=== PATIENT | male | born 1970 | race Caucasian/White ===

== ENCOUNTER 2018-10-04 03:19 | Emergency (ER) | payer OTHER, MEDICAID ==
[~2018-10-04] VITALS: Ht 177.8 cm; Wt 84.0 kg
[2018-10-04 03:23] VITALS: BP 131/82
[2018-10-04 04:03] LABS: BASOPHILS % (AUTO) 0.4 % (0-1); EOSINOPHILS # (AUTO) 0.2 X10'3 (0-0.9); EOSINOPHILS % (AUTO) 3.3 % (0-6); HEMATOCRIT 42.2 % (42.0-52.0); HEMOGLOBIN 14.1 g/dl (14.0-17.9); LYMPHOCYTES # (AUTO) 1.5 X10'3 (1.1-4.8); LYMPHOCYTES % (AUTO) 21.8 % (21-51); MEAN CORPUSCULAR HEMOGLOBIN 30.9 PG (27.0-31.0); MEAN CORPUSCULAR HGB CONC 33.3 % (33.0-36.5); MEAN CORPUSCULAR VOLUME 92.8 FL (78-98); MEAN PLATELET VOLUME 7.9 FL (7.4-10.4); MONOCYTES # (AUTO) 0.6 X10'3 (0-0.9); MONOCYTES % (AUTO) 8.4 % (2-12); NEUTROPHILS # (AUTO) 4.7 X10'3 (1.8-7.7); NEUTROPHILS % (AUTO) 66.1 % (42-75); PLATELET COUNT 289 X10'3 (140-440); RED BLOOD COUNT 4.55 X10'6 (4.70-6.10); WHITE BLOOD COUNT 7.1 X10'3 (4.5-11.0)
[2018-10-04 04:17] LABS: ALANINE AMINOTRANSFERASE 38 U/L (12-78); ALBUMIN/GLOBULIN RATIO 1.2 (1.1-1.5); ALKALINE PHOSPHATASE 89 IU/L (46-116); ANION GAP 9 (8-16); ASPARTATE AMINO TRANSFERASE 28 U/L (10-37); BILIRUBIN,TOTAL 0.4 MG/DL (0.1-1.0); BLOOD UREA NITROGEN 16 MG/DL (7-18); BUN/CREATININE RATIO 15.4 (5.4-32.0); CALCIUM 9.1 MG/DL (8.5-10.1); CHLORIDE 101 MMOL/L (99-107); CREATININE 1.04 MG/DL (0.60-1.10); GLUCOSE 96 MG/DL (70-104); POTASSIUM 4.4 MMOL/L (3.5-5.1); SODIUM 139 MMOL/L (135-145); TOTAL CARBON DIOXIDE 28.6 MMOL/L (24-32); TOTAL PROTEIN 7.4 G/DL (6.4-8.2); eGFR 77 ML/MIN
[2018-10-04 04:19] LABS: PARTIAL THROMBOPLASTIN TIME 28 SECONDS (22-32); PROTHROMBIN TIME 10.3 SECONDS (9.0-12.0)
== END 2018-10-04 05:49 | disposition home or self-care (01) ==
LOC: ER 03:20
DX: R07.89 Other chest pain (principal); R42 Dizziness and giddiness; R10.13 Epigastric pain; Z87.891 Personal history of nicotine dependence; Z88.1 Allergy status to other antibiotic agents
CPT/HCPCS: 36415; 71045; 80053; 84484; 85025; 85610; 85730; 93005; 99284

== ENCOUNTER 2021-07-30 04:38 | Emergency (ER) | payer MEDICAID, OTHER ==
[~2021-07-30] VITALS: Ht 175.3 cm; Wt 49.5 kg
[2021-07-30 06:01] LABS: CLARITY,URINE CLEAR (Clear); COLOR,URINE YELLOW (Yellow); GLUCOSE, URINE NEGATIVE (Neg); KETONES,URINE NEGATIVE (Neg); LEUKOCYTE ESTERASE ,URINE NEGATIVE (Neg); NITRITES, URINE NEGATIVE (Neg); OCCULT BLOOD,URINE TRACE-INTACT (Neg); PROTEIN,URINE NEGATIVE (Neg); UA COLLECTION TYPE CLN CATCH MIDSTREAM; UROBILINOGEN,URINE 0.2 E.U/dL (0.2-1.0)
[2021-07-30 06:11] LABS: WBC,URINE 0-4 /HPF (0-4)
[2021-07-30 06:12] LABS: BACTERIA,URINE NONE SEEN /HPF (Neg); MUCUS STRANDS NONE SEEN /LPF (Neg); RBC,URINE 0-2 /HPF (0-2); SQUAMOUS EPITHELIAL CELL,UR FEW /LPF (FEW)
[2021-07-30] MEDS ORDERED: HYDR-3965 PO (06:41)
== END 2021-07-30 06:47 | disposition home or self-care (01) ==
LOC: ER 04:40
DX: M54.50 Low back pain, unspecified (principal); R10.31 Right lower quadrant pain; Z88.1 Allergy status to other antibiotic agents; Z72.89 Other problems related to lifestyle
CPT/HCPCS: 81001; 99283

== ENCOUNTER 2022-01-01 22:04 | Emergency (ER) | payer MEDICAID ==
[~2022-01-01] VITALS: Ht 175.3 cm; Wt 77.3 kg
[2022-01-02] MEDS ORDERED: MOME13HF INH (00:33)
[2022-01-02] MEDS ORDERED: ALBU8.5H17 INH (00:33)
[2022-01-02] MEDS ORDERED: ipratropium/albuterol 3ml nebule NEB ONE (00:35)
[2022-01-02 00:52] VITALS: BP 123/84
== END 2022-01-02 00:57 | disposition home or self-care (01) ==
LOC: ER 22:06
DX: J44.9 Chronic obstructive pulmonary disease, unspecified (principal); Z76.0 Encounter for issue of repeat prescription; Z88.0 Allergy status to penicillin; Z79.899 Other long term (current) drug therapy
CPT/HCPCS: 94640; 94760; 99283

== ENCOUNTER 2022-01-14 23:34 | Emergency (ER) | payer MEDICAID ==
[~2022-01-14] VITALS: Ht 175.3 cm; Wt 77.0 kg
[~2022-01-14 23:34] MED LIST: ALBU8.5H17 INH; MOME13HF INH
[2022-01-15 00:01] LABS: BASOPHILS # (AUTO) 0.1 X10'3 (0-0.2); BASOPHILS % (AUTO) 0.8 % (0-1); EOSINOPHILS # (AUTO) 1.4 X10'3 (0-0.9); EOSINOPHILS % (AUTO) 15.8 % (0-6); HEMATOCRIT 44.9 % (42.0-52.0); HEMOGLOBIN 14.9 g/dl (14.0-17.9); LYMPHOCYTES # (AUTO) 1.8 X10'3 (1.1-4.8); LYMPHOCYTES % (AUTO) 21.2 % (21-51); MEAN CORPUSCULAR HEMOGLOBIN 31.1 PG (27.0-31.0); MEAN CORPUSCULAR HGB CONC 33.2 g/dL (33.0-36.5); MEAN CORPUSCULAR VOLUME 93.8 FL (78-98); MEAN PLATELET VOLUME 7.4 FL (7.4-10.4); MONOCYTES # (AUTO) 0.6 X10'3 (0-0.9); MONOCYTES % (AUTO) 7.5 % (2-12); NEUTROPHILS # (AUTO) 4.7 X10'3 (1.8-7.7); NEUTROPHILS % (AUTO) 54.7 % (42-75); PLATELET COUNT 326 X10'3 (140-440); RED BLOOD COUNT 4.79 X10'6 (4.70-6.10); RED CELL DISTRIBUTION WIDTH 14.5 % (11.5-14.5); WHITE BLOOD COUNT 8.6 X10'3 (4.5-11.0)
[2022-01-15 00:14] LABS: ALANINE AMINOTRANSFERASE 35 U/L (12-78); ALBUMIN 3.7 G/DL (3.4-5.0); ALBUMIN/GLOBULIN RATIO 1.2 (1.1-1.5); ALKALINE PHOSPHATASE 99 IU/L (46-116); ANION GAP 5 (8-16); ASPARTATE AMINO TRANSFERASE 24 U/L (10-37); BILIRUBIN,TOTAL 0.3 MG/DL (0.1-1.0); BLOOD UREA NITROGEN 20 MG/DL (7-18); BUN/CREATININE RATIO 21.7 (5.4-32.0); CALCIUM 8.7 MG/DL (8.5-10.1); CHLORIDE 106 MMOL/L (99-107); CREATININE 0.92 MG/DL (0.60-1.10); GLUCOSE 96 MG/DL (70-104); SODIUM 140 MMOL/L (135-145); TOTAL CARBON DIOXIDE 28.8 MMOL/L (24-32); TOTAL PROTEIN 6.9 G/DL (6.4-8.2); eGFR 87 ML/MIN
[2022-01-15] MEDS ORDERED: ondansetron/PF 4mg/2ml inj IV ONE (00:30)
--- NOTE | 2022-01-15 00:31 | NUR ---
RELIEVING RN FOR BREAK, PT AMB WITH STEADY GAIT TO RESTROOM, WAITING TO BE EVALUATED BY PROVIDER
[2022-01-15] MEDS ORDERED: albuterol 2.5 MG/3 ML nebule CONTNEB PRN (00:40)
[2022-01-15] MEDS ORDERED: dexamethasone 4mg tablet PO ONE (00:40)
[2022-01-15] MEDS ORDERED: azithromycin 250mg tablet PO ONE (02:10)
[2022-01-15] MEDS ORDERED: AZIT-83 PO (02:12)
[2022-01-15] MEDS ORDERED: PRED20TA PO (02:12)
[2022-01-15] MEDS ORDERED: ALBU6.7H9 INH (02:13)
[2022-01-15 02:30] VITALS: BP 133/88
== END 2022-01-15 03:04 | disposition home or self-care (01) ==
LOC: ER 23:35
DX: J44.1 Chronic obstructive pulmonary disease with (acute) exacerbation (principal); J40 Bronchitis, not specified as acute or chronic
CPT/HCPCS: 36415; 71045; 80053; 83880; 84484; 85025; 93005; 94640; 94760; 99285; A7015

== ENCOUNTER 2022-02-02 08:20 | Emergency (ER) | payer MEDICAID ==
[~2022-02-02] VITALS: Ht 175.3 cm; Wt 77.3 kg
[~2022-02-02 08:20] MED LIST changes: +ALBU6.7H9 INH; +AZIT-83 PO; +PRED20TA PO
[2022-02-02 08:41] LABS: BASOPHILS # (AUTO) 0.1 X10'3 (0-0.2); BASOPHILS % (AUTO) 0.7 % (0-1); EOSINOPHILS # (AUTO) 0.7 X10'3 (0-0.9); EOSINOPHILS % (AUTO) 9.7 % (0-6); HEMOGLOBIN 13.7 g/dl (14.0-17.9); LYMPHOCYTES # (AUTO) 1.4 X10'3 (1.1-4.8); LYMPHOCYTES % (AUTO) 18.5 % (21-51); MEAN CORPUSCULAR HEMOGLOBIN 30.4 PG (27.0-31.0); MEAN CORPUSCULAR HGB CONC 32.6 g/dL (33.0-36.5); MEAN CORPUSCULAR VOLUME 93.2 FL (78-98); MEAN PLATELET VOLUME 7.5 FL (7.4-10.4); MONOCYTES # (AUTO) 0.6 X10'3 (0-0.9); MONOCYTES % (AUTO) 8.4 % (2-12); NEUTROPHILS # (AUTO) 4.8 X10'3 (1.8-7.7); NEUTROPHILS % (AUTO) 62.7 % (42-75); PLATELET COUNT 317 X10'3 (140-440); RED BLOOD COUNT 4.51 X10'6 (4.70-6.10); RED CELL DISTRIBUTION WIDTH 14.1 % (11.5-14.5); WHITE BLOOD COUNT 7.6 X10'3 (4.5-11.0)
[2022-02-02 08:53] LABS: ALANINE AMINOTRANSFERASE 38 U/L (12-78); ALBUMIN 3.5 G/DL (3.4-5.0); ALBUMIN/GLOBULIN RATIO 1.2 (1.1-1.5); ALKALINE PHOSPHATASE 82 IU/L (46-116); ANION GAP 8 (8-16); ASPARTATE AMINO TRANSFERASE 23 U/L (10-37); BILIRUBIN,TOTAL 0.4 MG/DL (0.1-1.0); BLOOD UREA NITROGEN 21 MG/DL (7-18); BUN/CREATININE RATIO 25.6 (5.4-32.0); CALCIUM 8.4 MG/DL (8.5-10.1); CHLORIDE 106 MMOL/L (99-107); CREATININE 0.82 MG/DL (0.60-1.10); GLUCOSE 155 MG/DL (70-104); POTASSIUM 3.7 MMOL/L (3.5-5.1); SODIUM 140 MMOL/L (135-145); TOTAL CARBON DIOXIDE 25.6 MMOL/L (24-32); TOTAL PROTEIN 6.4 G/DL (6.4-8.2); eGFR > 90 ML/MIN
[2022-02-02] MEDS ORDERED: methylPREDNISolone sod succ 125mg/2ml vial IV ONE (09:00)
[2022-02-02] MEDS ORDERED: normal saline 1000ml 1,000 ML IV ONE (09:00)
[2022-02-02] MEDS ORDERED: ondansetron/PF 4mg/2ml inj IV ONE (09:00)
[2022-02-02] MEDS ORDERED: ipratropium/albuterol 3ml nebule NEB ONE (09:00)
[2022-02-02] MEDS ORDERED: benzonatate 100mg capsule PO ONE (09:00)
[2022-02-02] MEDS: acetaminophen 325mg tablet PO ONE ×2 (09:14→09:21)
[2022-02-02] MEDS: ketorolac trometh. 30mg/ml inj. IV ONE ×2 (09:14→09:21)
--- NOTE | 2022-02-02 09:29 | NUR ---
paged rt for breathing tx.
[2022-02-02] MEDS ORDERED: AZIT-83 PO (10:15)
[2022-02-02] MEDS ORDERED: BENZ-38 PO (10:15)
[2022-02-02] MEDS ORDERED: PRED20TA PO (10:15)
[2022-02-02] MEDS ORDERED: MOME13HF2 INH (10:15)
[2022-02-02 10:31] VITALS: BP 133/88
== END 2022-02-02 10:33 | disposition home or self-care (01) ==
LOC: ER 08:20
DX: J44.1 Chronic obstructive pulmonary disease with (acute) exacerbation (principal); Z88.1 Allergy status to other antibiotic agents; Z79.899 Other long term (current) drug therapy; Z20.822 Contact with and (suspected) exposure to COVID-19
CPT/HCPCS: 36415; 71045; 80053; 83880; 85025; 87502; 87503; 87635; 94640; 96361; 96374; 96375; 99284; C9803; J2405; J2930; J7030; 94760; J1885

== ENCOUNTER 2022-11-12 03:26 | Emergency (ER) | payer MEDICAID ==
[~2022-11-12] VITALS: Ht 175.3 cm; Wt 72.7 kg
[~2022-11-12 03:26] MED LIST changes: +ALBU6.7H14 INH; -ALBU6.7H9 INH; -AZIT-83 PO; -MOME13HF INH; +MOME13HF11 INH; +MOME13HF12 INH; -PRED20TA PO
[2022-11-12] MEDS ORDERED: ipratropium/albuterol 3ml nebule NEB ONE (03:50)
[2022-11-12] MEDS ORDERED: methylPREDNISolone sod succ 125mg/2ml vial IM ONE (03:50)
[2022-11-12] MEDS ORDERED: ALBU6.7H14 INH ×3 (03:51→03:52)
[2022-11-12] MEDS ORDERED: MOME13HF11 INH ×3 (03:51→03:52)
[2022-11-12] MEDS ORDERED: PRED20TA PO ×3 (03:51→03:52)
[2022-11-12] MEDS ORDERED: AZIT-83 PO ×3 (03:51→03:52)
[2022-11-12 03:52] LABS: BASOPHILS % (AUTO) 0.3 % (0-1); EOSINOPHILS # (AUTO) 0.6 X10'3 (0-0.9); EOSINOPHILS % (AUTO) 5.7 % (0-6); HEMATOCRIT 42.5 % (42.0-52.0); HEMOGLOBIN 13.9 g/dl (14.0-17.9); LYMPHOCYTES # (AUTO) 1.9 X10'3 (1.1-4.8); MEAN CORPUSCULAR HEMOGLOBIN 30.6 PG (27.0-31.0); MEAN CORPUSCULAR HGB CONC 32.7 g/dL (33.0-36.5); MEAN CORPUSCULAR VOLUME 93.4 FL (78-98); MEAN PLATELET VOLUME 7.2 FL (7.4-10.4); MONOCYTES # (AUTO) 0.9 X10'3 (0-0.9); NEUTROPHILS # (AUTO) 7.7 X10'3 (1.8-7.7); PLATELET COUNT 450 X10'3 (140-440); RED BLOOD COUNT 4.55 X10'6 (4.70-6.10); RED CELL DISTRIBUTION WIDTH 13.9 % (11.5-14.5); WHITE BLOOD COUNT 11.1 X10'3 (4.5-11.0)
[2022-11-12 03:56] LABS: ALANINE AMINOTRANSFERASE 20 U/L (12-78); ALBUMIN 3.5 G/DL (3.4-5.0); ALBUMIN/GLOBULIN RATIO 0.9 (1.1-1.5); ALKALINE PHOSPHATASE 118 IU/L (46-116); ANION GAP 6 (8-16); ASPARTATE AMINO TRANSFERASE 17 U/L (10-37); BILIRUBIN,TOTAL 0.2 MG/DL (0.1-1.0); BLOOD UREA NITROGEN 27 MG/DL (7-18); BUN/CREATININE RATIO 26.7 (5.4-32.0); CALCIUM 9.1 MG/DL (8.5-10.1); CHLORIDE 105 MMOL/L (99-107); CREATININE 1.01 MG/DL (0.60-1.10); GLUCOSE 109 MG/DL (70-104); SODIUM 142 MMOL/L (135-145); TOTAL CARBON DIOXIDE 30.9 MMOL/L (24-32); TOTAL PROTEIN 7.3 G/DL (6.4-8.2); eGFR 78 ML/MIN
[2022-11-12 04:04] LABS: MAGNESIUM 2.2 MG/DL (1.5-2.4)
[2022-11-12 05:04] VITALS: BP 125/84
== END 2022-11-12 05:18 | disposition home or self-care (01) ==
LOC: ER 03:29
DX: J44.9 Chronic obstructive pulmonary disease, unspecified (principal); F12.10 Cannabis abuse, uncomplicated; F15.10 Other stimulant abuse, uncomplicated; Z88.0 Allergy status to penicillin; Z79.899 Other long term (current) drug therapy; Z79.1 Long term (current) use of non-steroidal anti-inflammatories (NSAID)
CPT/HCPCS: 36415; 71045; 80053; 83735; 83880; 84484; 85025; 93005; 94640; 96372; 99285; J2930; 94760

== ENCOUNTER 2022-12-22 17:41 | Emergency (ER) | payer MEDICAID ==
[~2022-12-22] VITALS: Ht 175.3 cm; Wt 77.0 kg
[~2022-12-22 17:41] MED LIST changes: +AZIT-83 PO; +PRED20TA PO
[2022-12-22 17:55] VITALS: BP 114/88
[2022-12-22 18:15] LABS: BASOPHILS # (AUTO) 0.1 X10'3 (0-0.2); BASOPHILS % (AUTO) 0.7 % (0-1); EOSINOPHILS # (AUTO) 0.9 X10'3 (0-0.9); EOSINOPHILS % (AUTO) 9.7 % (0-6); HEMATOCRIT 42.5 % (42.0-52.0); HEMOGLOBIN 14.2 g/dl (14.0-17.9); LYMPHOCYTES # (AUTO) 1.8 X10'3 (1.1-4.8); LYMPHOCYTES % (AUTO) 20.3 % (21-51); MEAN CORPUSCULAR HEMOGLOBIN 31.1 PG (27.0-31.0); MEAN CORPUSCULAR HGB CONC 33.3 g/dL (33.0-36.5); MEAN CORPUSCULAR VOLUME 93.3 FL (78-98); MEAN PLATELET VOLUME 7.5 FL (7.4-10.4); MONOCYTES # (AUTO) 0.6 X10'3 (0-0.9); MONOCYTES % (AUTO) 7.3 % (2-12); NEUTROPHILS # (AUTO) 5.5 X10'3 (1.8-7.7); PLATELET COUNT 317 X10'3 (140-440); RED BLOOD COUNT 4.56 X10'6 (4.70-6.10); RED CELL DISTRIBUTION WIDTH 14.3 % (11.5-14.5); WHITE BLOOD COUNT 8.8 X10'3 (4.5-11.0)
[2022-12-22 18:35] LABS: ALANINE AMINOTRANSFERASE 29 U/L (12-78); ALBUMIN 3.8 G/DL (3.4-5.0); ALBUMIN/GLOBULIN RATIO 1.2 (1.1-1.5); ALKALINE PHOSPHATASE 113 IU/L (46-116); ANION GAP 7 (8-16); ASPARTATE AMINO TRANSFERASE 30 U/L (10-37); BILIRUBIN,TOTAL 0.4 MG/DL (0.1-1.0); BLOOD UREA NITROGEN 24 MG/DL (7-18); BUN/CREATININE RATIO 27.9 (10.0-20.0); CALCIUM 8.9 MG/DL (8.5-10.1); CHLORIDE 104 MMOL/L (99-107); CREATININE 0.86 MG/DL (0.60-1.10); GLUCOSE 88 MG/DL (70-104); POTASSIUM 3.8 MMOL/L (3.5-5.1); SODIUM 139 MMOL/L (135-145); TOTAL CARBON DIOXIDE 28.4 MMOL/L (24-32); TOTAL PROTEIN 6.9 G/DL (6.4-8.2); eGFR > 90 ML/MIN
[2022-12-22 18:42] LABS: MAGNESIUM 2.2 MG/DL (1.5-2.4)
== END 2022-12-22 19:54 | disposition left against medical advice (07) ==
LOC: ER 17:42
DX: R06.02 Shortness of breath (principal); Z53.21 Procedure and treatment not carried out due to patient leaving prior to being seen by health care provider; Z79.899 Other long term (current) drug therapy
CPT/HCPCS: 36415; 71045; 80053; 83735; 83880; 84484; 85025; 93005; 99281

== ENCOUNTER 2023-02-05 15:39 | Emergency (ER) | payer MEDICAID ==
[~2023-02-05] VITALS: Ht 175.3 cm; Wt 75.0 kg
[~2023-02-05 15:39] MED LIST changes: +AZIT-164 PO; -AZIT-83 PO
[2023-02-05] MEDS ORDERED: DOXYCYCLINE 100MG CAPSULE PO STA (15:54)
[2023-02-05] MEDS ORDERED: methylPREDNISolone sod succ 125mg/2ml vial IV ONE (15:55)
[2023-02-05 16:05] LABS: BASOPHILS % (AUTO) 0.2 % (0-1); EOSINOPHILS # (AUTO) 0.2 X10'3 (0-0.9); EOSINOPHILS % (AUTO) 1.2 % (0-6); HEMATOCRIT 40.9 % (42.0-52.0); HEMOGLOBIN 13.6 g/dl (14.0-17.9); LYMPHOCYTES # (AUTO) 1.6 X10'3 (1.1-4.8); LYMPHOCYTES % (AUTO) 10.5 % (21-51); MEAN CORPUSCULAR HGB CONC 33.2 g/dL (33.0-36.5); MEAN CORPUSCULAR VOLUME 93.3 FL (78-98); MEAN PLATELET VOLUME 7.7 FL (7.4-10.4); MONOCYTES # (AUTO) 1.4 X10'3 (0-0.9); MONOCYTES % (AUTO) 9.4 % (2-12); NEUTROPHILS # (AUTO) 11.7 X10'3 (1.8-7.7); NEUTROPHILS % (AUTO) 78.7 % (42-75); PLATELET COUNT 312 X10'3 (140-440); RED BLOOD COUNT 4.39 X10'6 (4.70-6.10); RED CELL DISTRIBUTION WIDTH 14.5 % (11.5-14.5); WHITE BLOOD COUNT 14.9 X10'3 (4.5-11.0)
[2023-02-05 16:19] LABS: ALANINE AMINOTRANSFERASE 25 U/L (12-78); ALBUMIN 3.3 G/DL (3.4-5.0); ALBUMIN/GLOBULIN RATIO 1.2 (1.1-1.5); ALKALINE PHOSPHATASE 93 IU/L (46-116); ANION GAP 5 (8-16); ASPARTATE AMINO TRANSFERASE 14 U/L (10-37); BILIRUBIN,TOTAL 0.7 MG/DL (0.1-1.0); BLOOD UREA NITROGEN 22 MG/DL (7-18); BUN/CREATININE RATIO 24.7 (10.0-20.0); CALCIUM 8.5 MG/DL (8.5-10.1); CHLORIDE 102 MMOL/L (99-107); CREATININE 0.89 MG/DL (0.60-1.10); GLUCOSE 124 MG/DL (70-104); POTASSIUM 3.3 MMOL/L (3.5-5.1); SODIUM 137 MMOL/L (135-145); TOTAL PROTEIN 6.1 G/DL (6.4-8.2); eGFR 90 ML/MIN
[2023-02-05] MEDS ORDERED: ketorolac trometh inj. 60 MG/2 ML VIAL IM ONE (17:25)
[2023-02-05] MEDS ORDERED: DOXY-1 PO (17:50)
[2023-02-05] MEDS ORDERED: albuterol 2.5 MG/3 ML nebule CONTNEB ONE (17:50)
[2023-02-05] MEDS ORDERED: MOME13HF11 INH (17:50)
[2023-02-05] MEDS ORDERED: PRED50TA PO ×2 (17:55)
--- NOTE | 2023-02-05 17:59 | NUR ---
paged rt for cont neb tx.
[2023-02-05] MEDS ORDERED: ALBU2.5V10 INH (19:16)
[2023-02-05] MEDS ORDERED: ALBU1.256 NEB (19:37)
[2023-02-05 19:50] VITALS: BP 96/86
== END 2023-02-05 19:51 | disposition home or self-care (01) ==
LOC: ER 15:39
DX: J45.901 Unspecified asthma with (acute) exacerbation (principal); M54.2 Cervicalgia
CPT/HCPCS: 36415; 71045; 72040; 80053; 85025; 93005; 94640; 94644; 96372; 96374; 99285; J1885; J2930; 94760; A7015

== ENCOUNTER 2023-10-24 20:21 | Emergency (ER) | payer MEDICAID ==
[~2023-10-24] VITALS: Ht 175.3 cm; Wt 73.6 kg
[~2023-10-24 20:21] MED LIST changes: +ALBU1.256 NEB; +ALBU2.5V10 INH; -ALBU6.7H14 INH; -ALBU8.5H17 INH; -AZIT-164 PO; -MOME13HF12 INH
[2023-10-24 20:24] VITALS: BP 137/83; TEMP 97.2
[2023-10-24] MEDS ORDERED: methylPREDNISolone sod succ 125mg/2ml vial IM ONE (20:30)
[2023-10-24] MEDS: methylPREDNISolone sod succ/PF 40mg inj. IM ONE (21:08)
[2023-10-24 21:17] LABS: BASOPHILS % (AUTO) 0.3 % (0-1); EOSINOPHILS # (AUTO) 0.7 X10'3 (0-0.9); EOSINOPHILS % (AUTO) 5.5 % (0-6); HEMATOCRIT 42.5 % (42.0-52.0); LYMPHOCYTES # (AUTO) 1.6 X10'3 (1.1-4.8); LYMPHOCYTES % (AUTO) 12.8 % (21-51); MEAN CORPUSCULAR HEMOGLOBIN 30.7 PG (27.0-31.0); MEAN CORPUSCULAR HGB CONC 32.8 g/dL (33.0-36.5); MEAN CORPUSCULAR VOLUME 93.6 FL (78-98); MEAN PLATELET VOLUME 7.8 FL (7.4-10.4); MONOCYTES % (AUTO) 8.3 % (2-12); NEUTROPHILS # (AUTO) 9.1 X10'3 (1.8-7.7); NEUTROPHILS % (AUTO) 73.1 % (42-75); PLATELET COUNT 356 X10'3 (140-440); RED BLOOD COUNT 4.54 X10'6 (4.70-6.10); RED CELL DISTRIBUTION WIDTH 14.1 % (11.5-14.5); WHITE BLOOD COUNT 12.4 X10'3 (4.5-11.0)
[2023-10-24] MEDS: ipratropium/albuterol 3ml nebule NEB STA ×2 (21:23)
[2023-10-24 21:26] VITALS: PULSE 95; RESP 16; O2SAT 96
[2023-10-24 21:32] VITALS: PULSE 99; RESP 18; O2SAT 99
[2023-10-24 21:32] LABS: MAGNESIUM 2.1 MG/DL (1.5-2.4); PRO BRAIN NATRIURETIC PEPTIDE 215 PG/ML (0-125)
[2023-10-24] MEDS ORDERED: PRED20TA PO (22:11)
[2023-10-24] MEDS ORDERED: ALBU18HF2 INH (22:11)
[2023-10-24] MEDS ORDERED: MOME13HF12 INH (22:11)
[2023-10-24] MEDS ORDERED: ipratropium/albuterol 3ml nebule NEB ONE (23:00)
== END 2023-10-24 22:59 | disposition home or self-care (01) ==
LOC: ER 20:21
DX: J44.1 Chronic obstructive pulmonary disease with (acute) exacerbation (principal); F15.90 Other stimulant use, unspecified, uncomplicated; F12.90 Cannabis use, unspecified, uncomplicated; F17.200 Nicotine dependence, unspecified, uncomplicated; Z88.1 Allergy status to other antibiotic agents; Z79.899 Other long term (current) drug therapy
CPT/HCPCS: 36415; 71045; 83735; 83880; 84484; 85025; 93005; 94640; 96372; 99285; J2920; 94760; 99284

== ENCOUNTER 2024-10-19 13:55 | Outpatient (CLI) | payer MEDICAID ==
[~2024-10-19] VITALS: Ht 175.3 cm; Wt 77.1 kg
[~2024-10-19 13:55] MED LIST changes: +ALBU18HF2 INH; +MOME13HF12 INH
[2024-10-19] MEDS: albuterol 2.5 MG/3 ML nebule NEB ONE (14:33)
[2024-10-19 14:34] VITALS: PULSE 92; RESP 18; O2SAT 94
[2024-10-19 14:46] VITALS: PULSE 94; RESP 16
== END 2024-10-19 23:59 | disposition home or self-care (01) ==
LOC: RT 13:55
PROVIDERS: ATTEND Nurse Practitioner Family
DX: J44.9 Chronic obstructive pulmonary disease, unspecified (principal)
CPT/HCPCS: 94060; 94760